=== PATIENT | male | born 1960 | race African-American/Black ===

== ENCOUNTER 2024-08-14 01:31 | Inpatient (IN) | payer MEDICAID ==
[~2024-08-14] VITALS: Ht 175.3 cm; Wt 68.6 kg
[2024-08-14] MEDS ORDERED: ONDANSETRON HCL 4MG/2ML INJ IV ONE (02:15)
[2024-08-14] MEDS: SODIUM CHLORIDE 0.9% 1,000 ML IV ONE ×2 (03:54→07:00)
[2024-08-14] MEDS: FAMOTIDINE 20MG/2ML VIAL IV SCH (04:47)
[2024-08-14] MEDS: ONDANSETRON HCL 4MG/2ML INJ IV SCH (04:48)
[2024-08-14 06:45] LABS: BASOPHILS % 0.7 % (0.0-2.0); EOSINOPHILS % 0.5 % (0.0-5.0); HEMATOCRIT. 24.1 % (42.0-52.0); HEMOGLOBIN. 7.7 g/dL (14.0-18.0); LYMPHOCYTES % 20.4 % (20.0-50.0); MEAN PLATELET VOLUME 7.7 fl (7.4-10.4); MONOCYTES % 9.5 % (2.0-8.0); NEUTROPHILS % 68.9 % (40.0-76.0); PLATELET 128 x1000/uL (130-400); RED BLOOD CELL COUNT 2.96 mill/uL (4.7-6.1); RED CELL DISTRIBUTION WIDTH 19.3 % (11.6-14.6)
[2024-08-14 07:03] LABS: CREATININE 0.5 mg/dL (0.6-1.3); ETHANOL BLOOD 112 mg/dL (<10); UREA NITROGEN BLOOD < 5 mg/dL (9-23)
[2024-08-14] MEDS ORDERED: KCL 10MEQ/50ML PREMIX 50 ML IV SCH (07:45)
[2024-08-14] MEDS ORDERED: VANCOMYCIN 1G PREMIX 200 ML IV ONE (08:30)
[2024-08-14] MEDS ORDERED: SODIUM CHLORIDE 0.9% 1,000 ML IV SCH (09:15)
[2024-08-14] MEDS: SODIUM CHLORIDE 0.9% (SEPSIS BOLUS) IV ONE (09:19)
[2024-08-14] MEDS: PIPERACILLIN/TAZO 3.375G/50ML 50 ML IV ONE (09:20)
[2024-08-14 09:24] LABS: TROPONIN I HIGH SENSITIVITY 6 ng/L (3.0-53)
[2024-08-14 09:26] LABS: ASPARTATE AMINOTRANSFERASE 122 IU/L (<34); BILIRUBIN DIRECT 1.3 mg/dL (<=3.0); BILIRUBIN TOTAL 1.9 mg/dL (0.1-1.0); PROTEIN TOTAL 6.3 g/dL (6.0-8.3)
[2024-08-14] MEDS: POTASSIUM CHLORIDE 20MEQ/PACKET PO SCH (09:28)
[2024-08-14] MEDS ORDERED: NALOXONE HCL 0.4MG/ML VIAL IV PRN (09:30)
[2024-08-14] MEDS: VANCOMYCIN 1G PREMIX 200 ML IV SCH (09:44)
[2024-08-14] MEDS: ACETAMINOPHEN 325MG TABLET PO STA (09:45)
[2024-08-14] MEDS: ENOXAPARIN 40MG/0.4ML SYR SUBCUT SCH (09:54)
[2024-08-14 10:26] LABS: CLARITY URINE HAZY (CLEAR); COLOR URINE DARK YELLOW (YELLOW); GLUCOSE URINE NEGATIVE (NEGATIVE); PH URINE 6.5 (4.5-8.0); PROTEIN URINE TRACE (NEGATIVE); SPECIFIC GRAVITY URINE 1.017 (1.005-1.030)
[2024-08-14 10:27] LABS: KETONES URINE TRACE (NEGATIVE); LEUKOCYTE ESTERASE URINE TRACE (NEGATIVE); NITRITE URINE NEGATIVE (NEGATIVE); OCCULT BLOOD URINE NEGATIVE (NEGATIVE); UROBILINOGEN URINE 4.0 E.U./dL (0.2-1.0)
[2024-08-14 10:52] LABS: BACTERIA URINE 2+; HYALINE CASTS URINE 0-5 /lpf; RBC URINE 0-2 /hpf (0-2); SQUAMOUS EPITHELIAL CELL URINE 2+ /lpf (RARE/1+); YEAST URINE NONE SEEN
[2024-08-14 11:00] LABS: *AMPHETAMINES SCREEN URINE NEGATIVE (NEGATIVE); *BARBITURATES SCREEN URINE NEGATIVE (NEGATIVE); *BENZODIAZEPINES SCREEN URINE NEGATIVE (NEGATIVE); *COCAINE SCREEN URINE NEGATIVE (NEGATIVE); CANNABINOID URINE SCREEN NEGATIVE (NEGATIVE); ECSTASY MDMA SCREEN URINE NEGATIVE (NEGATIVE); METHADONE URINE SCREEN NEGATIVE (NEGATIVE); OPIATES URINE SCREEN NEGATIVE (NEGATIVE); PHENCYCLIDINE URINE SCREEN NEGATIVE (NEGATIVE)
[2024-08-14 12:00] VITALS: BP 115/70; PULSE 113; RESP 18; TEMP 37.5; O2SAT 94
[2024-08-14] MEDS: HYDROCODONE/ACETAMINOPHEN 5/325MG TABLET PO PRN (14:14)
[2024-08-14 16:00] VITALS: BP 117/75; PULSE 113; RESP 18; TEMP 36.4; O2SAT 95
[2024-08-14] MEDS: LORAZEPAM 2MG/ML UD SYRINGE IV PRN (19:36)
[2024-08-14 20:00] VITALS: BP 121/68; PULSE 130; RESP 15; TEMP 38.2; O2SAT 99
[2024-08-14] MEDS: SODIUM CHLORIDE 0.9% 500 ML IV NR (22:54)
[2024-08-15] VITALS: BP 114/70; PULSE 130; RESP 16; TEMP 38.1; O2SAT 100
[2024-08-15] MEDS: SODIUM CHLORIDE 0.9% 1,000 ML IV SCH (00:36)
[2024-08-15 04:00] VITALS: BP 132/77; PULSE 131; RESP 16; TEMP 36.8; O2SAT 99
[2024-08-15 08:00] VITALS: BP 110/70; PULSE 100; RESP 18; TEMP 36.7; O2SAT 99
[2024-08-15] MEDS: PIPERACILLIN/TAZO 3.375G/50ML 50 ML IV SCH (08:27)
[2024-08-15] MEDS: PANTOPRAZOLE SODIUM 40 MG/VIAL IV SCH (08:27)
[2024-08-15 10:33] LABS: BASOPHILS % 1.0 % (0.0-2.0); EOSINOPHILS % 0.0 % (0.0-5.0); HEMATOCRIT. 25.8 % (42.0-52.0); HEMOGLOBIN. 8.2 g/dL (14.0-18.0); LYMPHOCYTES % 13.8 % (20.0-50.0); MONOCYTES % 11.2 % (2.0-8.0); NEUTROPHILS % 74.0 % (40.0-76.0); RED BLOOD CELL COUNT 3.16 mill/uL (4.7-6.1); RED CELL DISTRIBUTION WIDTH 19.5 % (11.6-14.6)
[2024-08-15 11:00] LABS: CREATININE 0.5 mg/dL (0.6-1.3); UREA NITROGEN BLOOD < 5 mg/dL (9-23)
[2024-08-15 11:02] LABS: PHOSPHORUS 1.8 mg/dL (2.5-4.9)
[2024-08-15 11:08] LABS: ADD RBC MORPHOLOGY YES
[2024-08-15 12:00] VITALS: BP 113/78; PULSE 115; RESP 19; TEMP 36.2; O2SAT 98
[2024-08-15 12:42] LABS: PLATELET ESTIMATE SLIGHTLY DECREASED
[2024-08-15] MEDS: MAGNESIUM 2 G PREMIX 50 ML IV SCH (14:13)
[2024-08-15] MEDS ORDERED: THIAMINE HCL 100MG TABLET PO SCH (14:15)
[2024-08-15] MEDS: MULTIVITAMINS,THER W-MINERALS TABLET PO SCH (14:34)
[2024-08-15] MEDS: THIAMINE HCL 100MG TABLET PO SCH (14:35)
[2024-08-15] MEDS: POTASSIUM-SODIUM PHOSPHATE POWDER PACKET PO SCH (14:36)
[2024-08-15] MEDS: FOLIC ACID 1MG TABLET PO SCH (14:47)
[2024-08-15 16:00] VITALS: BP 116/71; PULSE 118; RESP 19; TEMP 36.4; O2SAT 98
[2024-08-15 20:00] VITALS: BP 127/77; PULSE 134; RESP 19; TEMP 36.5; O2SAT 95
[2024-08-16] VITALS: BP 123/79; PULSE 78; RESP 19; TEMP 36.7; O2SAT 94
[2024-08-16 04:00] VITALS: BP 119/78; PULSE 86; RESP 18; TEMP 36.4; O2SAT 94
[2024-08-16 07:45] LABS: BASOPHILS % 0.5 % (0.0-2.0); EOSINOPHILS % 0.2 % (0.0-5.0); HEMATOCRIT. 25.5 % (42.0-52.0); HEMOGLOBIN. 8.0 g/dL (14.0-18.0); LYMPHOCYTES % 13.2 % (20.0-50.0); MEAN PLATELET VOLUME 8.3 fl (7.4-10.4); MONOCYTES % 8.4 % (2.0-8.0); NEUTROPHILS % 77.7 % (40.0-76.0); PLATELET 88 x1000/uL (130-400); RED BLOOD CELL COUNT 3.12 mill/uL (4.7-6.1); RED CELL DISTRIBUTION WIDTH 19.2 % (11.6-14.6)
[2024-08-16 08:00] VITALS: BP 114/75; PULSE 111; RESP 18; TEMP 36.7; O2SAT 98
[2024-08-16 08:02] LABS: CREATININE 0.6 mg/dL (0.6-1.3); UREA NITROGEN BLOOD < 5 mg/dL (9-23)
[2024-08-16 08:04] LABS: ASPARTATE AMINOTRANSFERASE 105 IU/L (<34); BILIRUBIN DIRECT 1.3 mg/dL (<=3.0)
[2024-08-16 08:05] LABS: BILIRUBIN TOTAL 1.9 mg/dL (0.1-1.0); PROTEIN TOTAL 5.6 g/dL (6.0-8.3)
[2024-08-16] MEDS: MAGNESIUM OXIDE 400MG TABLET PO SCH (08:30)
[2024-08-16 12:00] VITALS: BP 113/76; PULSE 119; RESP 18; TEMP 36.9; O2SAT 95
[2024-08-16] MEDS ORDERED: POTASSIUM-SODIUM PHOSPHATE POWDER PACKET PO SCH (14:00)
[2024-08-16 16:00] VITALS: BP 144/80; PULSE 127; RESP 20; TEMP 36.2; O2SAT 100
[2024-08-16] MEDS: CHLORDIAZEPOXIDE 10MG CAPSULE PO SCH (18:38)
[2024-08-16] MEDS: DILTIAZEM HCL 5MG/ML 5ML VIAL IV SCH (18:40)
[2024-08-16 20:00] VITALS: BP 139/81; PULSE 135; RESP 20; TEMP 37.2; O2SAT 100
[2024-08-17] VITALS (7 sets, daily range): BP systolic 103–148; BP diastolic 63–72; PULSE 107–126; RESP 17–20; TEMP 36.4–38.2; O2SAT 20–100
[2024-08-17 06:50] LABS: FOLIC ACID (FOLATE) SERUM 7.16 ng/mL (>5.38)
[2024-08-17 06:51] LABS: VITAMIN B12 SERUM 930 pg/mL (211-911)
[2024-08-17] MEDS: BISACODYL 10MG SUPP PR SCH (17:15)
[2024-08-17] MEDS: LACTULOSE 20G/30ML UDC PO SCH (21:26)
[2024-08-17] MEDS: MORPHINE SULFATE 2 MG/ML INJ (NOT FOR IM USE) IV PRN (21:30)
[2024-08-18] VITALS: BP 104/69; PULSE 113; RESP 16; TEMP 36.8; O2SAT 98
[2024-08-18 04:00] VITALS: BP 110/70; PULSE 114; RESP 18; TEMP 36.8; O2SAT 98
[2024-08-18 08:00] VITALS: BP 105/63; PULSE 114; RESP 16; TEMP 36.5; O2SAT 97
[2024-08-18 12:00] VITALS: BP 122/79; PULSE 112; RESP 16; TEMP 36.9; O2SAT 100
[2024-08-18] MEDS: DILTIAZEM HCL 30MG TABLET PO SCH (15:52)
[2024-08-18 16:00] VITALS: BP 103/67; PULSE 110; RESP 16; TEMP 37.2; O2SAT 100
[2024-08-18] MEDS: ACETAMINOPHEN 650MG/20.3ML UDC GT PRN (19:13)
[2024-08-18] MEDS: ERGOCALCIFEROL 50000UNITS CAPSULE PO SCH (19:21)
[2024-08-18 20:00] VITALS: BP 101/68; PULSE 113; RESP 18; TEMP 36.4; O2SAT 97
[2024-08-18 21:51] LABS: HEMATOCRIT. 25.3 % (42.0-52.0); HEMOGLOBIN. 7.7 g/dL (14.0-18.0); RED BLOOD CELL COUNT 3.05 mill/uL (4.7-6.1); RED CELL DISTRIBUTION WIDTH 19.8 % (11.6-14.6)
[2024-08-18] MEDS ORDERED: LACTULOSE 20G/30ML UDC PO SCH (22:00)
[2024-08-18 22:01] LABS: CREATININE 0.6 mg/dL (0.6-1.3)
[2024-08-18 22:02] LABS: UREA NITROGEN BLOOD < 5 mg/dL (9-23)
[2024-08-18 22:24] LABS: EOSINOPHILS % MANUAL 1.0 % (0.0-5.0); LYMPHOCYTES % MANUAL 28.0 % (20.0-50.0); MONOCYTES % MANUAL 13.0 % (2.0-8.0); NEUTROPHILS % MANUAL 58.0 % (45.0-75.0)
[2024-08-19] VITALS (7 sets, daily range): BP systolic 103–110; BP diastolic 52–74; PULSE 93–113; RESP 16–19; TEMP 36.3–37.1; O2SAT 18–100
[2024-08-19 07:34] LABS: BASOPHILS % 1.1 % (0.0-2.0); EOSINOPHILS % 1.2 % (0.0-5.0); HEMATOCRIT. 25.5 % (42.0-52.0); HEMOGLOBIN. 7.6 g/dL (14.0-18.0); LYMPHOCYTES % 24.0 % (20.0-50.0); MEAN PLATELET VOLUME 8.7 fl (7.4-10.4); MONOCYTES % 13.7 % (2.0-8.0); NEUTROPHILS % 60.0 % (40.0-76.0); PLATELET 102 x1000/uL (130-400); RED BLOOD CELL COUNT 3.11 mill/uL (4.7-6.1); RED CELL DISTRIBUTION WIDTH 19.8 % (11.6-14.6)
[2024-08-19 08:00] LABS: CREATININE 0.5 mg/dL (0.6-1.3)
[2024-08-19 08:01] LABS: UREA NITROGEN BLOOD 5 mg/dL (9-23)
[2024-08-19 08:02] LABS: ASPARTATE AMINOTRANSFERASE 126 IU/L (<34)
[2024-08-19 08:03] LABS: BILIRUBIN TOTAL 1.8 mg/dL (0.1-1.0); PHOSPHORUS 2.0 mg/dL (2.5-4.9); PROTEIN TOTAL 6.3 g/dL (6.0-8.3)
[2024-08-19] MEDS: POTASSIUM CHLORIDE 20MEQ TABLET SR PO NR (10:40)
[2024-08-19] MEDS: MAGNESIUM 2 G PREMIX 50 ML IV NR ×2 (12:25→14:08)
[2024-08-19 20:27] LABS: HEPATITIS A AB IGM NEGATIVE (Negative)
[2024-08-19 20:28] LABS: HEPATITIS B CORE AB IGM NEGATIVE (Negative); HEPATITIS C AB NON REACTIVE (Neg) (Negative)
[2024-08-20 08:00] VITALS: BP 110/69; PULSE 102; RESP 18; TEMP 36.5; O2SAT 100
[2024-08-20 08:35] LABS: CREATININE 0.4 mg/dL (0.6-1.3); UREA NITROGEN BLOOD < 5 mg/dL (9-23)
[2024-08-20 08:45] LABS: HEMATOCRIT. 23.6 % (42.0-52.0); HEMOGLOBIN. 7.2 g/dL (14.0-18.0); RED BLOOD CELL COUNT 2.88 mill/uL (4.7-6.1); RED CELL DISTRIBUTION WIDTH 19.7 % (11.6-14.6)
[2024-08-20 09:06] LABS: PLATELET 93 x1000/uL (130-400)
[2024-08-20 09:13] LABS: BAND% 17.0 % (1.0-6.0); LYMPHOCYTES % MANUAL 23.0 % (20.0-50.0); MONOCYTES % MANUAL 10.0 % (2.0-8.0); NEUTROPHILS % MANUAL 50.0 % (45.0-75.0); PLATELET ESTIMATE DECREASED
[2024-08-20] MEDS ORDERED: NALOXONE HCL 0.4MG/ML VIAL IV PRN (10:45)
[2024-08-20] MEDS: MORPHINE SULFATE 2 MG/ML INJ (NOT FOR IM USE) IV PRN ×2 (11:38→21:28)
[2024-08-20 12:00] VITALS: BP 112/76; PULSE 113; RESP 22; TEMP 36.4; O2SAT 100
[2024-08-20 12:00] LABS: TROPONIN I HIGH SENSITIVITY < 4 ng/L (3.0-53)
[2024-08-20 16:00] VITALS: BP 111/67; PULSE 108; RESP 20; TEMP 36.5; O2SAT 97
[2024-08-20 20:00] VITALS: BP 117/75; PULSE 81; RESP 18; TEMP 36.5; O2SAT 75
[2024-08-21] VITALS: BP 99/65; PULSE 100; RESP 18; TEMP 36.4; O2SAT 99
[2024-08-21 04:00] VITALS: BP 108/74; PULSE 100; RESP 17; TEMP 36.6; O2SAT 98
[2024-08-21 08:00] VITALS: BP 117/87; PULSE 115; RESP 18; TEMP 36.5; O2SAT 99
[2024-08-21] MEDS: IRON SUCROSE COMPLEX 100 MG/5 ML ML IV SCH (08:00)
[2024-08-21 12:00] VITALS: BP 112/64; PULSE 113; RESP 18; TEMP 36.4; O2SAT 99
[2024-08-21 16:00] VITALS: BP 96/59; PULSE 113; RESP 18; TEMP 36.4; O2SAT 99
[2024-08-21 20:00] VITALS: BP 112/68; PULSE 123; RESP 18; TEMP 36.5; O2SAT 95
[2024-08-21] MEDS: MELATONIN 3MG TABLET PO SCH (20:26)
[2024-08-22] VITALS (11 sets, daily range): BP systolic 86–125; BP diastolic 50–89; PULSE 89–117; RESP 11–19; TEMP 35.9–37.00296; O2SAT 97–100
[2024-08-22 06:25] LABS: CREATININE 0.4 mg/dL (0.6-1.3); UREA NITROGEN BLOOD < 5 mg/dL (9-23)
[2024-08-22 06:27] LABS: ASPARTATE AMINOTRANSFERASE 147 IU/L (<34); BILIRUBIN DIRECT 1.2 mg/dL (<=3.0); BILIRUBIN TOTAL 1.8 mg/dL (0.1-1.0); PROTEIN TOTAL 5.8 g/dL (6.0-8.3)
[2024-08-22 06:49] LABS: BASOPHILS % 1.0 % (0.0-2.0); EOSINOPHILS % 1.3 % (0.0-5.0); HEMATOCRIT. 22.1 % (42.0-52.0); LYMPHOCYTES % 22.7 % (20.0-50.0); MEAN PLATELET VOLUME 8.4 fl (7.4-10.4); MONOCYTES % 14.3 % (2.0-8.0); NEUTROPHILS % 60.7 % (40.0-76.0); RED BLOOD CELL COUNT 2.73 mill/uL (4.7-6.1); RED CELL DISTRIBUTION WIDTH 19.4 % (11.6-14.6)
[2024-08-22 07:17] LABS: HEMOGLOBIN. 6.8 g/dL (14.0-18.0)
[2024-08-22 08:07] LABS: PLATELET 114 x1000/uL (130-400)
[2024-08-22 15:10] LABS: ACTIN (SMOOTH MUSCLE) ANTIBODY 19 Units (0-19)
[2024-08-22] MEDS: PREDNISONE 10MG TABLET PO SCH (20:49)
[2024-08-23] VITALS (42 sets, daily range): BP systolic 95–136; BP diastolic 61–102; PULSE 88–103; RESP 9–19; TEMP 36.55848–36.9474; O2SAT 95–100
[2024-08-23 06:18] LABS: INR 1.3
[2024-08-23 06:22] LABS: CREATININE 0.4 mg/dL (0.6-1.3)
[2024-08-23 06:23] LABS: UREA NITROGEN BLOOD < 5 mg/dL (9-23)
[2024-08-23 06:25] LABS: BASOPHILS % 0.7 % (0.0-2.0); BILIRUBIN TOTAL 1.9 mg/dL (0.1-1.0); EOSINOPHILS % 0.0 % (0.0-5.0); HEMATOCRIT. 24.1 % (42.0-52.0); HEMOGLOBIN. 7.6 g/dL (14.0-18.0); LYMPHOCYTES % 18.5 % (20.0-50.0); MONOCYTES % 11.5 % (2.0-8.0); NEUTROPHILS % 69.3 % (40.0-76.0); RED BLOOD CELL COUNT 2.98 mill/uL (4.7-6.1); RED CELL DISTRIBUTION WIDTH 19.1 % (11.6-14.6)
[2024-08-23 08:24] LABS: PLATELET 125 x1000/uL (130-400)
[2024-08-23 09:29] LABS: ERYTHROCYTE SEDIMENTATION RATE 49 mm/hr (0-20)
[2024-08-23 15:09] LABS: ANTI-NUCLEAR ANTIBODIES DIRECT Positive (Negative)
[2024-08-24] VITALS (31 sets, daily range): BP systolic 92–151; BP diastolic 55–109; PULSE 95–120; RESP 10–20; TEMP 36.7–37.3; O2SAT 98–100
[2024-08-24 09:10] LABS: COMPLEMENT C3 163 mg/dL (82-167); COMPLEMENT C4 15 mg/dL (12-38); G6PD RBC 2.96 x10E6/uL (4.14-5.80)
[2024-08-24 10:04] LABS: BASOPHILS % 0.7 % (0.0-2.0); EOSINOPHILS % 0.7 % (0.0-5.0); HEMATOCRIT. 33.5 % (42.0-52.0); HEMOGLOBIN. 10.4 g/dL (14.0-18.0); LYMPHOCYTES % 13.5 % (20.0-50.0); MEAN PLATELET VOLUME 8.9 fl (7.4-10.4); MONOCYTES % 13.6 % (2.0-8.0); NEUTROPHILS % 71.5 % (40.0-76.0); PLATELET 159 x1000/uL (130-400); RED BLOOD CELL COUNT 3.99 mill/uL (4.7-6.1); RED CELL DISTRIBUTION WIDTH 18.6 % (11.6-14.6)
[2024-08-24 10:10] LABS: G6PD QUANTITATIVE 453 (127-427)
[2024-08-24 10:40] LABS: CREATININE 0.4 mg/dL (0.6-1.3); UREA NITROGEN BLOOD < 5 mg/dL (9-23)
[2024-08-24 13:07] LABS: ANTI-DNA DOUBLE STRANDED QUANT 2 IU/mL (0-9); RNP ANTIBODY 6.0 AI (0.0-0.9); SMITH ANTIBODY < 0.2 AI (0.0-0.9)
[2024-08-25] VITALS (11 sets, daily range): BP systolic 98–133; BP diastolic 59–90; PULSE 61–108; RESP 16–20; TEMP 36–36.7; O2SAT 98–100
[2024-08-25 13:12] LABS: ANTI-CARDIOLIPIN AB IGG < 9 GPL U/mL (0-14); ANTI-CARDIOLIPIN AB IGM < 9 MPL U/mL (0-12)
[2024-08-25 15:07] LABS: ATYPICAL P-ANCA <1:20 titer (Neg:<1:20); CYTOPLASMIC C-ANCA <1:20 titer (Neg:<1:20); PERINUCLEAR P-ANCA <1:20 titer (Neg:<1:20)
[2024-08-25] MEDS: DEXT 5%/0.9% NACL 1,000 ML IV SCH (16:02)
[2024-08-25 17:10] LABS: ALDOLASE 6.0 U/L (3.3-10.3); ANTI-MYELOPEROXIDASE AB < 0.2 units (0.0-0.9); ANTI-PROTEINASE 3 ABS < 0.2 units (0.0-0.9)
[2024-08-25 18:55] LABS: HEMATOCRIT. 30.8 % (42.0-52.0); HEMOGLOBIN. 9.7 g/dL (14.0-18.0); MEAN PLATELET VOLUME 9.0 fl (7.4-10.4); PLATELET 162 x1000/uL (130-400); RED BLOOD CELL COUNT 3.69 mill/uL (4.7-6.1); RED CELL DISTRIBUTION WIDTH 19.6 % (11.6-14.6)
[2024-08-25 19:00] LABS: CREATININE 0.5 mg/dL (0.6-1.3); UREA NITROGEN BLOOD < 5 mg/dL (9-23)
[2024-08-25 19:06] LABS: GLYCOPROTEIN IV AB Negative (Negative); HLA CLASS 1 ANTIBODY Negative (Negative)
[2024-08-25 20:06] LABS: LYMPHOCYTES % MANUAL 13.0 % (20.0-50.0); MONOCYTES % MANUAL 6.0 % (2.0-8.0); NEUTROPHILS % MANUAL 81.0 % (45.0-75.0)
[2024-08-25 20:26] LABS: PLATELET ESTIMATE NORMAL
[2024-08-26] VITALS (7 sets, daily range): BP systolic 99–129; BP diastolic 54–82; PULSE 91–120; RESP 16–20; TEMP 36.1–37.1; O2SAT 96–100
[2024-08-26] MEDS: LACTULOSE 20G/30ML UDC PO SCH (06:01)
[2024-08-26 08:27] LABS: ASPARTATE AMINOTRANSFERASE 161 IU/L (<34); BILIRUBIN DIRECT 1.2 mg/dL (<=3.0); BILIRUBIN TOTAL 1.8 mg/dL (0.1-1.0); PROTEIN TOTAL 5.8 g/dL (6.0-8.3)
[2024-08-26 09:09] LABS: HGB A 97.8 % (96.4-98.8); HGB A2 2.2 % (1.8-3.2); HGB F 0.0 % (0.0-2.0); HGB S 0.0 % (0.0)
[2024-08-27] VITALS: BP 122/75; PULSE 99; RESP 19; TEMP 36.8; O2SAT 99
[2024-08-27 04:00] VITALS: BP 140/86; PULSE 105; RESP 19; TEMP 36.8; O2SAT 95
[2024-08-27 08:00] VITALS: BP 106/68; PULSE 103; RESP 20; TEMP 36.4; O2SAT 96
[2024-08-27 09:07] LABS: ANA IFA Negative (.)
[2024-08-27 09:22] LABS: ASPARTATE AMINOTRANSFERASE 188 IU/L (<34); BILIRUBIN DIRECT 1.3 mg/dL (<=3.0); BILIRUBIN TOTAL 2.0 mg/dL (0.1-1.0); PROTEIN TOTAL 6.3 g/dL (6.0-8.3)
[2024-08-27 12:00] VITALS: BP 141/88; PULSE 109; RESP 20; TEMP 37.2; O2SAT 99
[2024-08-27] MEDS: LACTULOSE 20G/30ML UDC PO SCH (13:56)
[2024-08-27 16:00] VITALS: BP 110/80; PULSE 106; RESP 18; TEMP 36.4; O2SAT 100
[2024-08-27 20:00] VITALS: BP 133/81; PULSE 107; RESP 18; TEMP 36.5; O2SAT 95
[2024-08-28] VITALS: BP 134/85; PULSE 100; RESP 18; TEMP 36.6; O2SAT 97
[2024-08-28 04:00] VITALS: BP 139/88; PULSE 100; RESP 16; TEMP 36.5; O2SAT 95
[2024-08-28] MEDS: MAGNESIUM 2 G PREMIX 50 ML IV NR (06:14)
[2024-08-28 08:00] VITALS: BP 118/72; PULSE 100; RESP 18; TEMP 36.3; O2SAT 97
[2024-08-28 08:11] LABS: CREATININE 0.5 mg/dL (0.6-1.3); UREA NITROGEN BLOOD < 5 mg/dL (9-23)
[2024-08-28 08:13] LABS: ASPARTATE AMINOTRANSFERASE 162 IU/L (<34); BILIRUBIN DIRECT 1.1 mg/dL (<=3.0); BILIRUBIN TOTAL 1.9 mg/dL (0.1-1.0); PHOSPHORUS 2.4 mg/dL (2.5-4.9); PROTEIN TOTAL 5.5 g/dL (6.0-8.3)
[2024-08-28 08:56] LABS: BASOPHILS % 0.9 % (0.0-2.0); EOSINOPHILS % 1.4 % (0.0-5.0); HEMATOCRIT. 28.4 % (42.0-52.0); HEMOGLOBIN. 9.3 g/dL (14.0-18.0); LYMPHOCYTES % 17.9 % (20.0-50.0); MEAN PLATELET VOLUME 8.5 fl (7.4-10.4); MONOCYTES % 9.6 % (2.0-8.0); NEUTROPHILS % 70.2 % (40.0-76.0); PLATELET 164 x1000/uL (130-400); RED BLOOD CELL COUNT 3.41 mill/uL (4.7-6.1); RED CELL DISTRIBUTION WIDTH 20.9 % (11.6-14.6)
[2024-08-28] MEDS: POTASSIUM CHLORIDE 30 MEQ in DEXT 5%/0.9% NACL 985 ML IV SCH (10:55)
[2024-08-28 12:00] VITALS: BP 129/80; PULSE 98; RESP 17; TEMP 36.8; O2SAT 99
[2024-08-28 15:09] LABS: ANGIOTENSION CONVERTING ENZYME 62 U/L (14-82)
[2024-08-28 16:00] VITALS: BP 128/83; PULSE 99; RESP 18; TEMP 36.5; O2SAT 96
[2024-08-28 20:00] VITALS: BP 142/85; PULSE 96; RESP 18; TEMP 36.7; O2SAT 98
[2024-08-29] VITALS: BP 116/66; PULSE 99; RESP 18; TEMP 36.5; O2SAT 98
[2024-08-29 04:00] VITALS: BP 123/72; PULSE 100; RESP 18; TEMP 36.7; O2SAT 98
[2024-08-29] MEDS ORDERED: LORAZEPAM 2MG/ML UD SYRINGE IV PRN (07:00)
[2024-08-29 07:09] LABS: ASPARTATE AMINOTRANSFERASE 235 IU/L (<34)
[2024-08-29 07:10] LABS: BILIRUBIN DIRECT 1.5 mg/dL (<=3.0); BILIRUBIN TOTAL 2.4 mg/dL (0.1-1.0); PROTEIN TOTAL 6.7 g/dL (6.0-8.3)
[2024-08-29 07:16] LABS: HEMATOCRIT. 31.8 % (42.0-52.0); HEMOGLOBIN. 10.2 g/dL (14.0-18.0); MEAN PLATELET VOLUME 8.6 fl (7.4-10.4); PLATELET 152 x1000/uL (130-400); RED BLOOD CELL COUNT 3.80 mill/uL (4.7-6.1); RED CELL DISTRIBUTION WIDTH 21.3 % (11.6-14.6)
[2024-08-29 08:00] VITALS: BP 114/64; PULSE 109; RESP 16; TEMP 36.3; O2SAT 97
[2024-08-29] MEDS: LORAZEPAM 2MG/ML UD SYRINGE ONE (08:55)
[2024-08-29] MEDS: CHLORDIAZEPOXIDE 10MG CAPSULE PO SCH (09:00)
[2024-08-29] MEDS ORDERED: LORAZEPAM 2MG/ML UD SYRINGE IM PRN (11:00)
[2024-08-29 12:00] VITALS: BP 115/70; PULSE 96; RESP 16; TEMP 36.2; O2SAT 96
[2024-08-29 16:00] VITALS: BP 110/63; PULSE 108; RESP 18; TEMP 36.6; O2SAT 97
[2024-08-29 18:37] LABS: EOSINOPHILS % MANUAL 1.0 % (0.0-5.0); LYMPHOCYTES % MANUAL 14.0 % (20.0-50.0); MONOCYTES % MANUAL 9.0 % (2.0-8.0); NEUTROPHILS % MANUAL 76.0 % (45.0-75.0); PLATELET ESTIMATE NORMAL
[2024-08-29 19:04] LABS: CREATININE 0.5 mg/dL (0.6-1.3); UREA NITROGEN BLOOD < 5 mg/dL (9-23)
[2024-08-29 20:00] VITALS: BP 127/73; PULSE 109; RESP 16; TEMP 36.6; O2SAT 97
[2024-08-30 04:00] VITALS: BP 120/73; PULSE 111; RESP 19; TEMP 36.7; O2SAT 100
[2024-08-30] MEDS ORDERED: HEPARIN 1000 UNITS/ML 10ML ONE (07:29)
[2024-08-30] MEDS ORDERED: IODIXANOL 320 MG/ML 150ML BOTTLE IV ONE ×2 (07:29→08:31)
[2024-08-30 07:30] VITALS: BP 123/74; PULSE 110; RESP 18; TEMP 36.7; O2SAT 98
[2024-08-30] MEDS ORDERED: MIDAZOLAM HCL 2 MG/2 ML VIAL ONE (08:23)
[2024-08-30] MEDS ORDERED: FENTANYL CITRATE/PF 50MCG/ML 2ML VIAL ONE (08:23)
[2024-08-30] MEDS ORDERED: THROMBIN (BOVINE) 5000 UNITS/VIAL TOP ONE (08:33)
[2024-08-30] MEDS ORDERED: IODIXANOL 320MG/ML 100 ML BOTTLE IV ONE (08:35)
[2024-08-30] MEDS: LORAZEPAM 1MG TABLET PO PRN (11:28)
[2024-08-30 12:00] VITALS: BP 121/73; PULSE 110; RESP 20; TEMP 36.4; O2SAT 100
[2024-08-30] MEDS: ONDANSETRON HCL 4MG/2ML INJ IV PRN (14:51)
[2024-08-30 16:00] VITALS: BP 117/58; PULSE 95; RESP 20; TEMP 37.1; O2SAT 100
[2024-08-30 17:54] LABS: BASOPHILS % 0.3 % (0.0-2.0); EOSINOPHILS % 0.3 % (0.0-5.0); HEMATOCRIT. 34.3 % (42.0-52.0); HEMOGLOBIN. 10.7 g/dL (14.0-18.0); LYMPHOCYTES % 9.8 % (20.0-50.0); MEAN PLATELET VOLUME 8.4 fl (7.4-10.4); MONOCYTES % 9.5 % (2.0-8.0); NEUTROPHILS % 80.1 % (40.0-76.0); PLATELET 89 x1000/uL (130-400); RED BLOOD CELL COUNT 3.94 mill/uL (4.7-6.1); RED CELL DISTRIBUTION WIDTH 21.7 % (11.6-14.6)
[2024-08-30 18:04] LABS: INR 1.5
[2024-08-30 18:10] LABS: CREATININE 0.6 mg/dL (0.6-1.3)
[2024-08-30 18:11] LABS: UREA NITROGEN BLOOD < 5 mg/dL (9-23)
[2024-08-30 18:12] LABS: ASPARTATE AMINOTRANSFERASE 232 IU/L (<34); PHOSPHORUS 3.1 mg/dL (2.5-4.9)
[2024-08-30 18:13] LABS: BILIRUBIN TOTAL 3.6 mg/dL (0.1-1.0); PROTEIN TOTAL 6.8 g/dL (6.0-8.3)
[2024-08-30 20:00] VITALS: BP 120/76; PULSE 119; RESP 17; TEMP 36.8; O2SAT 98
[2024-08-31] VITALS: BP 110/62; PULSE 118; RESP 20; TEMP 36.8; O2SAT 98
[2024-08-31 04:00] VITALS: BP 103/60; PULSE 114; RESP 15; TEMP 36.8; O2SAT 98
[2024-08-31 08:00] VITALS: BP 112/67; PULSE 112; RESP 18; TEMP 36.5; O2SAT 98
[2024-08-31 10:25] LABS: BG BASE EXCESS -2.7 mmol/L (-2.0-3.0); BG CARBOXYHEMOGLOBIN 0.8 % (0.5-1.5); BG DEOXYHEMOGLOBIN 3.0 % (0.0-5.0); BG FRACTION INSPIRED OXYGEN 21; BG HCO3 ACT 18.5 mmol/L (21.0-28.0); BG METHEMOGLOBIN 0.3 % (0.5-1.5); BG OXYGEN SATURATION 97.0 % (94.0-98.0); BG OXYHEMOGLOBIN 95.9 % (94.0-98.0); BG PCO2 22.2 mmHg (35.0-48.0); BG PH 7.539 (7.350-7.450); BG PO2 84.0 mmHg (83.0-108.0); BG SAMPLE SITE RIGHT BRACHIAL; BG TOTAL HEMOGLOBIN 10.5 g/dL (13.5-17.5); BG VENT MODE ROOM AIR
[2024-08-31 12:00] VITALS: BP 101/56; PULSE 98; RESP 16; TEMP 36.2; O2SAT 95
[2024-08-31 16:00] VITALS: BP 101/69; PULSE 98; RESP 18; TEMP 36.4; O2SAT 96
[2024-08-31 20:00] VITALS: BP 125/76; PULSE 98; RESP 18; TEMP 36.4; O2SAT 100
[2024-08-31 22:07] LABS: BASOPHILS % 0.4 % (0.0-2.0); EOSINOPHILS % 0.4 % (0.0-5.0); HEMATOCRIT. 32.0 % (42.0-52.0); HEMOGLOBIN. 10.1 g/dL (14.0-18.0); LYMPHOCYTES % 19.6 % (20.0-50.0); MONOCYTES % 12.1 % (2.0-8.0); NEUTROPHILS % 67.5 % (40.0-76.0); RED BLOOD CELL COUNT 3.71 mill/uL (4.7-6.1); RED CELL DISTRIBUTION WIDTH 22.4 % (11.6-14.6)
[2024-08-31 22:24] LABS: CREATININE 0.5 mg/dL (0.6-1.3); UREA NITROGEN BLOOD < 5 mg/dL (9-23)
[2024-09-01] VITALS: BP 118/70; PULSE 94; RESP 18; TEMP 36.7; O2SAT 100
[2024-09-01 04:00] VITALS: BP 115/68; PULSE 98; RESP 20; TEMP 36.8; O2SAT 97
[2024-09-01 08:00] VITALS: BP 115/69; PULSE 105; RESP 20; TEMP 36.4; O2SAT 97
[2024-09-01] MEDS: FERROUS SULFATE 325MG TABLET PO SCH (09:14)
[2024-09-01 12:00] VITALS: BP 125/81; PULSE 101; RESP 20; TEMP 36.5; O2SAT 98
[2024-09-01 16:00] VITALS: BP 125/76; PULSE 94; RESP 20; TEMP 36.3; O2SAT 99
[2024-09-01 20:00] VITALS: BP 127/85; PULSE 101; RESP 18; TEMP 35.7; O2SAT 100
[2024-09-02] VITALS: BP 133/79; PULSE 99; RESP 18; TEMP 36.6; O2SAT 100
[2024-09-02 04:00] VITALS: BP_SYST 133; BP_SYST 143; BP_DIAS 79; BP_DIAS 84; PULSE 84; RESP 20; TEMP 36.4; O2SAT 95
[2024-09-02 06:47] LABS: BASOPHILS % 0.7 % (0.0-2.0); EOSINOPHILS % 1.0 % (0.0-5.0); HEMATOCRIT. 31.3 % (42.0-52.0); HEMOGLOBIN. 10.2 g/dL (14.0-18.0); LYMPHOCYTES % 12.6 % (20.0-50.0); MEAN PLATELET VOLUME 8.1 fl (7.4-10.4); MONOCYTES % 12.2 % (2.0-8.0); NEUTROPHILS % 73.5 % (40.0-76.0); PLATELET 103 x1000/uL (130-400); RED BLOOD CELL COUNT 3.77 mill/uL (4.7-6.1); RED CELL DISTRIBUTION WIDTH 21.8 % (11.6-14.6)
[2024-09-02 06:55] LABS: CREATININE 0.4 mg/dL (0.6-1.3); UREA NITROGEN BLOOD < 5 mg/dL (9-23)
[2024-09-02 06:58] LABS: PHOSPHORUS 2.9 mg/dL (2.5-4.9)
[2024-09-02 08:00] VITALS: BP 129/85; PULSE 65; RESP 18; TEMP 36.4; O2SAT 100
[2024-09-02 12:00] VITALS: BP 125/75; PULSE 102; RESP 18; TEMP 36.4; O2SAT 99
[2024-09-02 16:00] VITALS: BP 125/56; PULSE 101; RESP 17; TEMP 36.6; O2SAT 95
[2024-09-02 20:00] VITALS: BP 152/91; PULSE 101; RESP 20; TEMP 36.6; O2SAT 96
[2024-09-03] VITALS: BP 138/88; PULSE 107; RESP 19; TEMP 36.6; O2SAT 97
[2024-09-03 04:00] VITALS: BP 140/85; PULSE 99; RESP 19; TEMP 36.6; O2SAT 98
[2024-09-03 08:00] VITALS: BP 149/91; PULSE 110; RESP 20; TEMP 36.7; O2SAT 95
[2024-09-03 12:00] VITALS: PULSE 99; RESP 20; TEMP 36.3; O2SAT 100
[2024-09-03 16:00] VITALS: PULSE 90; RESP 20; TEMP 36.1; O2SAT 100
[2024-09-03 16:51] LABS: BASOPHILS % 0.4 % (0.0-2.0); EOSINOPHILS % 0.1 % (0.0-5.0); HEMATOCRIT. 31.8 % (42.0-52.0); HEMOGLOBIN. 10.3 g/dL (14.0-18.0); LYMPHOCYTES % 9.7 % (20.0-50.0); MEAN PLATELET VOLUME 9.2 fl (7.4-10.4); MONOCYTES % 7.7 % (2.0-8.0); NEUTROPHILS % 82.1 % (40.0-76.0); PLATELET 134 x1000/uL (130-400); RED BLOOD CELL COUNT 3.84 mill/uL (4.7-6.1); RED CELL DISTRIBUTION WIDTH 21.6 % (11.6-14.6)
[2024-09-03 16:59] LABS: CREATININE 0.4 mg/dL (0.6-1.3)
[2024-09-03 17:00] LABS: UREA NITROGEN BLOOD < 5 mg/dL (9-23)
[2024-09-03 17:01] LABS: ASPARTATE AMINOTRANSFERASE 252 IU/L (<34)
[2024-09-03 17:02] LABS: BILIRUBIN DIRECT 1.9 mg/dL (<=3.0); BILIRUBIN TOTAL 3.1 mg/dL (0.1-1.0); INR 1.5; PHOSPHORUS 3.7 mg/dL (2.5-4.9); PROTEIN TOTAL 6.7 g/dL (6.0-8.3)
[2024-09-03 20:00] VITALS: BP 116/76; PULSE 110; RESP 20; TEMP 36.1; O2SAT 99
[2024-09-04 08:00] VITALS: BP 122/78; PULSE 101; RESP 20; TEMP 36.3; O2SAT 98
[2024-09-04 08:37] LABS: BASOPHILS % 1.0 % (0.0-2.0); EOSINOPHILS % 1.5 % (0.0-5.0); HEMATOCRIT. 31.5 % (42.0-52.0); HEMOGLOBIN. 10.3 g/dL (14.0-18.0); LYMPHOCYTES % 16.1 % (20.0-50.0); MEAN PLATELET VOLUME 8.6 fl (7.4-10.4); MONOCYTES % 10.7 % (2.0-8.0); NEUTROPHILS % 70.7 % (40.0-76.0); PLATELET 113 x1000/uL (130-400); RED BLOOD CELL COUNT 3.75 mill/uL (4.7-6.1); RED CELL DISTRIBUTION WIDTH 21.4 % (11.6-14.6)
[2024-09-04 08:53] LABS: CREATININE 0.4 mg/dL (0.6-1.3); UREA NITROGEN BLOOD < 5 mg/dL (9-23)
[2024-09-04 12:00] VITALS: BP 117/73; PULSE 104; RESP 20; TEMP 36.6; O2SAT 98
[2024-09-04 16:00] VITALS: BP 154/106; PULSE 114; RESP 18; TEMP 36.4; O2SAT 100
[2024-09-04 20:00] VITALS: BP 126/76; PULSE 97; RESP 16; TEMP 36.3; O2SAT 98
[2024-09-05] VITALS: BP 114/74; PULSE 102; RESP 16; TEMP 36.4; O2SAT 98
[2024-09-05 08:00] VITALS: BP 121/79; PULSE 118; RESP 18; TEMP 36.6; O2SAT 99
[2024-09-05 12:00] VITALS: BP 114/78; PULSE 96; RESP 20; TEMP 36.6; O2SAT 99
[2024-09-05 20:00] VITALS: BP 120/60; PULSE 104; RESP 15; TEMP 36.6; O2SAT 99
[2024-09-05] MEDS: METOPROLOL TARTRATE 25MG TABLET PO SCH (21:00)
[2024-09-06] VITALS (7 sets, daily range): BP systolic 97–118; BP diastolic 55–75; PULSE 83–105; RESP 15–19; TEMP 36.3–37.2; O2SAT 99–100
[2024-09-06] MEDS: LORAZEPAM 1MG TABLET PO PRN (03:20)
[2024-09-06 18:28] LABS: BASOPHILS % 0.5 % (0.0-2.0); EOSINOPHILS % 0.5 % (0.0-5.0); HEMATOCRIT. 29.8 % (42.0-52.0); HEMOGLOBIN. 9.6 g/dL (14.0-18.0); LYMPHOCYTES % 11.9 % (20.0-50.0); MEAN PLATELET VOLUME 8.6 fl (7.4-10.4); MONOCYTES % 9.4 % (2.0-8.0); NEUTROPHILS % 77.7 % (40.0-76.0); PLATELET 159 x1000/uL (130-400); RED BLOOD CELL COUNT 3.52 mill/uL (4.7-6.1); RED CELL DISTRIBUTION WIDTH 21.5 % (11.6-14.6)
[2024-09-06 18:43] LABS: CREATININE 0.5 mg/dL (0.6-1.3); UREA NITROGEN BLOOD 8 mg/dL (9-23)
[2024-09-07] VITALS: BP 114/60; PULSE 80; RESP 18; TEMP 36.3; O2SAT 96
[2024-09-07 04:00] VITALS: BP 100/56; PULSE 76; RESP 16; TEMP 36.4; O2SAT 99
[2024-09-07 07:12] LABS: BASOPHILS % 0.6 % (0.0-2.0); EOSINOPHILS % 2.2 % (0.0-5.0); HEMATOCRIT. 30.1 % (42.0-52.0); HEMOGLOBIN. 10.0 g/dL (14.0-18.0); LYMPHOCYTES % 16.9 % (20.0-50.0); MEAN PLATELET VOLUME 8.5 fl (7.4-10.4); MONOCYTES % 9.7 % (2.0-8.0); NEUTROPHILS % 70.6 % (40.0-76.0); PLATELET 152 x1000/uL (130-400); RED BLOOD CELL COUNT 3.57 mill/uL (4.7-6.1); RED CELL DISTRIBUTION WIDTH 22.0 % (11.6-14.6)
[2024-09-07 07:14] LABS: CREATININE 0.4 mg/dL (0.6-1.3)
[2024-09-07 07:15] LABS: UREA NITROGEN BLOOD 8 mg/dL (9-23)
[2024-09-07 07:17] LABS: PHOSPHORUS 3.8 mg/dL (2.5-4.9)
[2024-09-07 07:22] LABS: ADD RBC MORPHOLOGY NO
[2024-09-07 08:00] VITALS: BP 102/55; PULSE 75; RESP 17; TEMP 36.5; O2SAT 98
[2024-09-07] MEDS: MAGNESIUM 2 G PREMIX 50 ML IV SCH (09:15)
[2024-09-07 12:00] VITALS: BP 101/62; PULSE 84; RESP 16; TEMP 36.3; O2SAT 97
[2024-09-07 16:00] VITALS: BP 118/64; PULSE 92; RESP 18; TEMP 36.8; O2SAT 99
[2024-09-07 20:00] VITALS: BP 114/76; PULSE 105; RESP 20; TEMP 36.4; O2SAT 100
[2024-09-08] VITALS: BP 118/70; PULSE 84; RESP 20; TEMP 36.9; O2SAT 98
[2024-09-08 04:00] VITALS: BP 118/85; PULSE 86; RESP 18; TEMP 36.4; O2SAT 100
[2024-09-08 08:00] VITALS: BP 106/63; PULSE 83; RESP 18; TEMP 36.1; O2SAT 96
[2024-09-08 12:00] VITALS: BP 115/67; PULSE 91; RESP 20; TEMP 36.7; O2SAT 99
[2024-09-08 16:00] VITALS: BP 108/62; PULSE 98; RESP 20; TEMP 36.9; O2SAT 100
[2024-09-08 20:00] VITALS: BP 122/69; PULSE 99; RESP 16; TEMP 36.6; O2SAT 99
[2024-09-09] VITALS: BP 135/77; PULSE 91; RESP 17; TEMP 36.4; O2SAT 100
[2024-09-09 04:00] VITALS: BP 111/52; PULSE 88; RESP 17; TEMP 36.4; O2SAT 97
[2024-09-09 08:00] VITALS: BP 105/73; PULSE 88; RESP 17; TEMP 36.5; O2SAT 100
[2024-09-09 12:00] VITALS: BP 100/62; PULSE 92; RESP 17; TEMP 36.5; O2SAT 99
[2024-09-09 16:00] VITALS: BP 116/69; PULSE 92; RESP 16; TEMP 36.5; O2SAT 99
[2024-09-09] MEDS: MAGNESIUM 2 G PREMIX 50 ML IV NR (16:45)
[2024-09-09 20:00] VITALS: BP 101/56; PULSE 91; RESP 20; TEMP 36.4; O2SAT 100
[2024-09-10] VITALS: BP 115/70; PULSE 93; RESP 19; TEMP 36.6; O2SAT 99
[2024-09-10 04:00] VITALS: BP 107/64; PULSE 88; RESP 19; TEMP 36.6; O2SAT 100
[2024-09-10 08:00] VITALS: BP 106/68; PULSE 96; RESP 19; TEMP 36.6; O2SAT 99
[2024-09-10 12:00] VITALS: BP 114/70; PULSE 93; RESP 19; TEMP 36.7; O2SAT 99
[2024-09-10 20:00] VITALS: BP 102/57; PULSE 101; RESP 20; TEMP 36.4; O2SAT 98
[2024-09-11] VITALS: BP 122/75; PULSE 100; RESP 18; TEMP 36.6; O2SAT 100
[2024-09-11 04:00] VITALS: BP 134/82; PULSE 107; RESP 20; TEMP 36.5; O2SAT 95
[2024-09-11 07:01] LABS: BASOPHILS % 0.7 % (0.0-2.0); EOSINOPHILS % 1.2 % (0.0-5.0); HEMATOCRIT. 32.2 % (42.0-52.0); HEMOGLOBIN. 10.8 g/dL (14.0-18.0); LYMPHOCYTES % 18.1 % (20.0-50.0); MEAN PLATELET VOLUME 8.3 fl (7.4-10.4); MONOCYTES % 8.8 % (2.0-8.0); NEUTROPHILS % 71.2 % (40.0-76.0); PLATELET 169 x1000/uL (130-400); RED BLOOD CELL COUNT 3.81 mill/uL (4.7-6.1); RED CELL DISTRIBUTION WIDTH 21.7 % (11.6-14.6)
[2024-09-11 07:04] LABS: CREATININE 0.4 mg/dL (0.6-1.3); UREA NITROGEN BLOOD 10 mg/dL (9-23)
[2024-09-11 07:07] LABS: PHOSPHORUS 3.5 mg/dL (2.5-4.9)
[2024-09-11 08:00] VITALS: BP 108/55; PULSE 105; RESP 18; TEMP 36.3; O2SAT 96
[2024-09-11] MEDS: IOHEXOL-350 100 ML BOTTLE ONE (10:39)
[2024-09-11 12:00] VITALS: BP 122/77; PULSE 100; RESP 18; TEMP 36.6; O2SAT 98
[2024-09-11 16:00] VITALS: BP 101/68; PULSE 110; RESP 20; TEMP 36.7
[2024-09-11 20:00] VITALS: BP 124/79; PULSE 114; RESP 18; TEMP 36.4; O2SAT 99
[2024-09-11] MEDS: LORAZEPAM 1MG TABLET PO PRN (21:18)
[2024-09-12] VITALS: BP 122/66; PULSE 86; RESP 19; TEMP 36.3; O2SAT 98
[2024-09-12 04:00] VITALS: BP 112/59; PULSE 91; TEMP 36.3; O2SAT 96
[2024-09-12 08:00] VITALS: BP 103/56; PULSE 93; TEMP 36.2; O2SAT 97
[2024-09-12 12:00] VITALS: BP 103/57; PULSE 88; RESP 20; TEMP 36.6; O2SAT 100
[2024-09-12 16:00] VITALS: BP 106/61; PULSE 88; RESP 18; TEMP 36.4; O2SAT 100
[2024-09-12 20:00] VITALS: BP 114/68; PULSE 88; RESP 18; TEMP 36.4; O2SAT 100
[2024-09-13] VITALS: BP 111/66; PULSE 78; RESP 16; TEMP 36.2; O2SAT 100
[2024-09-13 04:00] VITALS: BP 116/71; PULSE 82; RESP 16; TEMP 36.3; O2SAT 98
[2024-09-13 08:00] VITALS: BP 126/72; PULSE 83; RESP 14; TEMP 36.3; O2SAT 100
[2024-09-13 12:00] VITALS: BP 106/62; PULSE 71; RESP 14; TEMP 36.7; O2SAT 100
[2024-09-13 16:00] VITALS: BP 122/68; PULSE 78; RESP 16; TEMP 36.3; O2SAT 100
[2024-09-13 20:00] VITALS: BP 99/58; PULSE 82; RESP 16; TEMP 36.7; O2SAT 100
[2024-09-14] VITALS: BP 119/64; PULSE 87; RESP 18; TEMP 36.6; O2SAT 99
[2024-09-14 04:00] VITALS: BP 117/79; PULSE 94; RESP 18; TEMP 36.3; O2SAT 100
[2024-09-14 08:00] VITALS: BP 118/69; PULSE 101; RESP 18; TEMP 36.8; O2SAT 96
[2024-09-14 12:00] VITALS: BP 118/73; PULSE 103; RESP 16; TEMP 36.4; O2SAT 98
[2024-09-14 16:00] VITALS: BP 122/75; PULSE 94; RESP 18; TEMP 36.5; O2SAT 99
[2024-09-14] MEDS ORDERED: LACTULOSE ENEMA 1,000ML BOTTLE PR PRN (17:30)
[2024-09-14 20:00] VITALS: BP 124/70; PULSE 91; RESP 19; TEMP 36.1; O2SAT 98
[2024-09-14] MEDS: RIFAXIMIN 550 MG TABLET PO SCH (21:06)
[2024-09-15] VITALS: BP 102/65; PULSE 91; RESP 20; TEMP 36.2; O2SAT 99
[2024-09-15 04:00] VITALS: BP 114/70; PULSE 97; RESP 18; TEMP 36.2; O2SAT 98
[2024-09-15 08:00] VITALS: BP 107/69; PULSE 99; RESP 17; TEMP 36.6; O2SAT 98
[2024-09-15 12:00] VITALS: BP 111/70; PULSE 103; RESP 18; RESP 19; TEMP 37.3; O2SAT 99
[2024-09-15 13:05] LABS: BASOPHILS % 0.9 % (0.0-2.0); EOSINOPHILS % 2.1 % (0.0-5.0); HEMATOCRIT. 31.4 % (42.0-52.0); HEMOGLOBIN. 10.2 g/dL (14.0-18.0); LYMPHOCYTES % 14.6 % (20.0-50.0); MEAN PLATELET VOLUME 9.1 fl (7.4-10.4); MONOCYTES % 11.3 % (2.0-8.0); NEUTROPHILS % 71.1 % (40.0-76.0); PLATELET 147 x1000/uL (130-400); RED BLOOD CELL COUNT 3.65 mill/uL (4.7-6.1); RED CELL DISTRIBUTION WIDTH 21.7 % (11.6-14.6)
[2024-09-15 13:14] LABS: INR 1.3
[2024-09-15 13:17] LABS: CREATININE 0.5 mg/dL (0.6-1.3)
[2024-09-15 13:18] LABS: UREA NITROGEN BLOOD 6 mg/dL (9-23)
[2024-09-15 13:19] LABS: ASPARTATE AMINOTRANSFERASE 270 IU/L (<34)
[2024-09-15 13:20] LABS: BILIRUBIN TOTAL 3.2 mg/dL (0.1-1.0); PHOSPHORUS 3.5 mg/dL (2.5-4.9); PROTEIN TOTAL 7.4 g/dL (6.0-8.3)
[2024-09-15 16:00] VITALS: BP 120/65; PULSE 98; RESP 18; TEMP 36.7; O2SAT 98
[2024-09-16] VITALS: BP 101/60; PULSE 88; RESP 16; TEMP 36.6; O2SAT 97
[2024-09-16 04:00] VITALS: BP 121/73; PULSE 87; RESP 18; TEMP 36.6; O2SAT 100
[2024-09-16 07:57] LABS: BASOPHILS % 0.9 % (0.0-2.0); EOSINOPHILS % 2.1 % (0.0-5.0); HEMATOCRIT. 33.1 % (42.0-52.0); HEMOGLOBIN. 10.8 g/dL (14.0-18.0); LYMPHOCYTES % 13.1 % (20.0-50.0); MEAN PLATELET VOLUME 8.5 fl (7.4-10.4); MONOCYTES % 11.5 % (2.0-8.0); NEUTROPHILS % 72.4 % (40.0-76.0); PLATELET 138 x1000/uL (130-400); RED BLOOD CELL COUNT 3.88 mill/uL (4.7-6.1); RED CELL DISTRIBUTION WIDTH 21.8 % (11.6-14.6)
[2024-09-16 08:00] VITALS: BP 131/74; PULSE 111; RESP 20; TEMP 36.4; O2SAT 95
[2024-09-16 08:11] LABS: CREATININE 0.5 mg/dL (0.6-1.3); UREA NITROGEN BLOOD 8 mg/dL (9-23)
[2024-09-16 08:13] LABS: ASPARTATE AMINOTRANSFERASE 212 IU/L (<34); BILIRUBIN TOTAL 2.9 mg/dL (0.1-1.0); PROTEIN TOTAL 7.1 g/dL (6.0-8.3)
[2024-09-16 16:00] VITALS: BP 114/71; PULSE 98; RESP 20; TEMP 36.5; O2SAT 98
[2024-09-16 20:00] VITALS: BP 122/73; PULSE 100; RESP 17; TEMP 36.9; O2SAT 96
[2024-09-16] MEDS: LORAZEPAM 1MG TABLET PO PRN (23:54)
[2024-09-17] VITALS: BP 153/83; PULSE 95; RESP 18; TEMP 36.8; O2SAT 95
[2024-09-17 04:00] VITALS: BP 114/66; PULSE 91; RESP 17; TEMP 36.6; O2SAT 95
[2024-09-17 07:27] LABS: BASOPHILS % 0.9 % (0.0-2.0); EOSINOPHILS % 3.0 % (0.0-5.0); HEMATOCRIT. 31.6 % (42.0-52.0); HEMOGLOBIN. 10.3 g/dL (14.0-18.0); LYMPHOCYTES % 25.5 % (20.0-50.0); MEAN PLATELET VOLUME 8.5 fl (7.4-10.4); MONOCYTES % 12.5 % (2.0-8.0); NEUTROPHILS % 58.1 % (40.0-76.0); PLATELET 131 x1000/uL (130-400); RED BLOOD CELL COUNT 3.69 mill/uL (4.7-6.1); RED CELL DISTRIBUTION WIDTH 21.5 % (11.6-14.6)
[2024-09-17 08:00] VITALS: BP 125/74; PULSE 85; RESP 20; TEMP 36.5; O2SAT 97
[2024-09-17 08:05] LABS: CREATININE 0.5 mg/dL (0.6-1.3); UREA NITROGEN BLOOD 8 mg/dL (9-23)
[2024-09-17 08:07] LABS: ASPARTATE AMINOTRANSFERASE 168 IU/L (<34); BILIRUBIN TOTAL 2.5 mg/dL (0.1-1.0)
[2024-09-17 08:08] LABS: PROTEIN TOTAL 7.0 g/dL (6.0-8.3)
[2024-09-17 12:00] VITALS: BP 108/62; PULSE 107; RESP 20; TEMP 36.7; O2SAT 98
[2024-09-17 16:00] VITALS: BP 106/65; PULSE 95; RESP 20; TEMP 36.7; O2SAT 100
[2024-09-17 20:00] VITALS: BP 113/73; PULSE 98; RESP 17; TEMP 36.9; O2SAT 100
[2024-09-18 00:22] VITALS: BP 110/69; PULSE 98; RESP 17; TEMP 36.6; O2SAT 98
[2024-09-18 04:00] VITALS: BP 117/62; PULSE 92; RESP 16; TEMP 36.6; O2SAT 100
[2024-09-18 08:00] VITALS: BP 115/65; PULSE 102; RESP 14; TEMP 36.3; O2SAT 99
[2024-09-18 08:08] LABS: BASOPHILS % 0.8 % (0.0-2.0); EOSINOPHILS % 2.1 % (0.0-5.0); HEMATOCRIT. 31.9 % (42.0-52.0); HEMOGLOBIN. 10.4 g/dL (14.0-18.0); LYMPHOCYTES % 19.3 % (20.0-50.0); MEAN PLATELET VOLUME 8.2 fl (7.4-10.4); MONOCYTES % 11.4 % (2.0-8.0); NEUTROPHILS % 66.4 % (40.0-76.0); PLATELET 108 x1000/uL (130-400); RED BLOOD CELL COUNT 3.68 mill/uL (4.7-6.1); RED CELL DISTRIBUTION WIDTH 21.7 % (11.6-14.6)
[2024-09-18 08:21] LABS: CREATININE 0.6 mg/dL (0.6-1.3); UREA NITROGEN BLOOD 8 mg/dL (9-23)
[2024-09-18 08:23] LABS: ASPARTATE AMINOTRANSFERASE 183 IU/L (<34); BILIRUBIN TOTAL 2.5 mg/dL (0.1-1.0); PROTEIN TOTAL 7.0 g/dL (6.0-8.3)
[2024-09-18 12:00] VITALS: BP 124/81; PULSE 100; RESP 15; TEMP 36.2; O2SAT 99
[2024-09-18 16:00] VITALS: BP 111/65; PULSE 96; RESP 17; TEMP 36.8; O2SAT 100
[2024-09-18 20:00] VITALS: BP 127/68; PULSE 91; RESP 17; TEMP 36.7; O2SAT 95
[2024-09-19 04:00] VITALS: BP 126/82; PULSE 94; RESP 17; TEMP 36.4; O2SAT 100
[2024-09-19 05:13] VITALS: PULSE 94; RESP 17; TEMP 97.5
[2024-09-19 08:00] VITALS: BP 114/66; PULSE 90; RESP 20; TEMP 36.4; O2SAT 100
[2024-09-19 12:00] VITALS: BP 133/79; PULSE 84; RESP 20; TEMP 36.6; O2SAT 95
[2024-09-19 16:00] VITALS: BP 119/71; PULSE 109; RESP 20; TEMP 36.3; O2SAT 99
[2024-09-19 20:00] VITALS: BP 118/70; PULSE 102; RESP 18; TEMP 36.9; O2SAT 99
[2024-09-20] VITALS: BP 141/83; PULSE 93; RESP 18; TEMP 36.8; O2SAT 99
[2024-09-20 04:00] VITALS: BP 97/56; PULSE 85; RESP 18; TEMP 36.6; O2SAT 100
[2024-09-20 08:45] VITALS: BP 120/59; PULSE 107; RESP 18; TEMP 36.9; O2SAT 100
[2024-09-20 12:20] VITALS: BP 115/72; PULSE 93; RESP 18; TEMP 36.4; O2SAT 97
[2024-09-20 16:41] VITALS: BP 101/72; PULSE 109; RESP 18; TEMP 36.8; O2SAT 100
[2024-09-20 20:00] VITALS: BP 100/50; PULSE 89; RESP 18; TEMP 36.4; O2SAT 98
[2024-09-21] VITALS: BP 124/66; PULSE 77; RESP 18; TEMP 36.9; O2SAT 98
[2024-09-21 04:00] VITALS: BP 128/59; PULSE 80; RESP 18; TEMP 36.7; O2SAT 97
[2024-09-21 08:00] VITALS: BP 100/57; PULSE 87; RESP 18; TEMP 36.3; O2SAT 97
[2024-09-21 09:47] VITALS: BP 100/57; PULSE 87; TEMP 97.3; O2SAT 97
[2024-09-21] MEDS ORDERED: LACT-390 MT (10:33)
[2024-09-21 12:00] VITALS: BP 114/70; PULSE 91; RESP 19; TEMP 36.3; O2SAT 97
== END 2024-09-21 16:05 ==
LOC: ER 01:31 → EDBEDREQ 08:37 → ENRESERV 10:46 → 5WST 11:04 → UNDODISIN 08-17 19:36 → CVICU 08-22 21:24 → 8EST 08-24 20:30
PROVIDERS: ADMIT Internal Medicine Nephrology; ATTEND Internal Medicine Nephrology
PROC: 30233N1 Transfusion of Nonautologous Red Blood Cells into Peripheral Vein, Percutaneous Approach (ICD-10-PCS; principal; 2024-08-23)
PROC: 3E063GC Introduction of Other Therapeutic Substance into Central Artery, Percutaneous Approach (ICD-10-PCS; 2024-08-30)
PROC: B4101ZZ Fluoroscopy of Abdominal Aorta using Low Osmolar Contrast (ICD-10-PCS; 2024-08-30)
DX: K76.82 Hepatic encephalopathy (principal); G82.50 Quadriplegia, unspecified; G92.8 Other toxic encephalopathy; E43 Unspecified severe protein-calorie malnutrition; R18.8 Other ascites; E87.4 Mixed disorder of acid-base balance; J90 Pleural effusion, not elsewhere classified; K83.8 Other specified diseases of biliary tract; N17.9 Acute kidney failure, unspecified; D69.59 Other secondary thrombocytopenia; I71.40 Abdominal aortic aneurysm, without rupture, unspecified; D50.0 Iron deficiency anemia secondary to blood loss (chronic); F10.229 Alcohol dependence with intoxication, unspecified; E55.9 Vitamin D deficiency, unspecified; E87.6 Hypokalemia; D63.8 Anemia in other chronic diseases classified elsewhere; K74.60 Unspecified cirrhosis of liver; E87.5 Hyperkalemia; E66.9 Obesity, unspecified; M13.0 Polyarthritis, unspecified; S01.01XA Laceration without foreign body of scalp, initial encounter; N28.1 Cyst of kidney, acquired; Y83.8 Other surgical procedures as the cause of abnormal reaction of the patient, or of later complication, without mention of misadventure at the time of the procedure; Y92.89 Other specified places as the place of occurrence of the external cause; I97.89 Other postprocedural complications and disorders of the circulatory system, not elsewhere classified; Z68.22 Body mass index [BMI] 22.0-22.9, adult; W18.39XA Other fall on same level, initial encounter; Y93.89 Activity, other specified; Y99.8 Other external cause status; F10.239 Alcohol dependence with withdrawal, unspecified; F17.210 Nicotine dependence, cigarettes, uncomplicated; I11.9 Hypertensive heart disease without heart failure; Y90.5 Blood alcohol level of 100-119 mg/100 ml; Z86.73 Personal history of transient ischemic attack (TIA), and cerebral infarction without residual deficits; G89.29 Other chronic pain; M54.50 Low back pain, unspecified; M54.9 Dorsalgia, unspecified; R16.2 Hepatomegaly with splenomegaly, not elsewhere classified; J44.9 Chronic obstructive pulmonary disease, unspecified; M32.9 Systemic lupus erythematosus, unspecified; E11.40 Type 2 diabetes mellitus with diabetic neuropathy, unspecified; Z60.2 Problems related to living alone
CPT/HCPCS: 36415; 36600; 71045; 73521; 73560; 73600; 74018; 74174; 74176; 74183; 75625; 75894; 76700; 80048; 80053; 80076; 80305; 80320; 81003; 82085; 82140; 82164; 82247; 82248; 82306; 82375; 82390; 82550; 82595; 82607; 82728; 82746; 82805; 82955; 82962; 83021; 83520; 83540; 83550; 83605; 83735; 84100; 84132; 84145; 84443; 84484; 84550; 85014; 85018; 85025; 85041; 85044; 85379; 85651; 85660; 86022; 86038; 86147; 86160; 86225; 86235; 86256; 86332; 86431; 86705; 86709; 86850; 86880; 86900; 86920; 87340; 92523; 92610; 93005; 93306; 97110; 97116; 97162; 97164; 97166; 97168; 97530; 97535; 99285; A4606; C1769; C1893; J1308; J1644; J1650; J2060; J2250; J2270; J2405; J2470; J2543; J3010; J3370; J3475; J3480; J3490; J7030; J7042; J7512; P9016; Q9967; G0480